=== PATIENT | female | born 1995 | race Caucasian/White ===

== ENCOUNTER 2017-02-05 23:28 | Emergency (ER) | payer SELFPAY ==
[~2017-02-05] VITALS: Ht 167.6 cm; Wt 94.0 kg
[2017-02-05 23:42] VITALS: BP 101/61
== END 2017-02-06 00:25 | disposition home or self-care (01) ==
LOC: ER 23:28
DX: F10.129 Alcohol abuse with intoxication, unspecified (principal); R11.10 Vomiting, unspecified; Y90.9 Presence of alcohol in blood, level not specified
CPT/HCPCS: 99283